=== PATIENT | female | born 1965 | race Caucasian/White ===

== ENCOUNTER 2021-02-03 16:37 | Outpatient (CLI) | payer OTHER | END 2021-02-03 16:38 | disposition home or self-care (01) | LOC: CSHLAB 16:37 | PROVIDERS: ATTEND Obstetrics & Gynecology | DX: Z01.812 Encounter for preprocedural laboratory examination (principal); Z20.822 Contact with and (suspected) exposure to COVID-19 | CPT/HCPCS: 84703; 85027; 86850; 86900; 86901; U0003; U0005 ==

== ENCOUNTER 2021-02-08 08:31 | Observation (INO) | payer OTHER ==
[2021-02-03 17:37] LABS: Mean Corpuscular HGB CONC 31.6 g/dL (32.0-36.0); Mean Corpuscular Hemoglobin 29.4 pg (27.0-33.0); Mean Corpuscular Volume 93.1 fl (81.6-98.3); Mean Platelet Volume 9.5 fl (7.4-10.4); Platelet Count 240 10x3/uL (150-450); RBC Distribution Width 12.7 % (11.5-14.5); Red Blood Cell (RBC) Count 4.08 10x6/uL (3.90-5.03); White Blood Cell (WBC) Count 4.3 10x3/uL (3.5-10.5)
[2021-02-03 17:44] LABS: BHCG - Serum Negative (NEGATIVE); Pregs Control Background? CLEAR/WHITE (CLR/WHITE); Pregs Control Bar Appear? YES (CONTROL BAR)
[2021-02-04 15:34] LABS: SARS-CoV-2 PCR by NAA Not Detected (NotDetected)
[2021-02-06 10:59] VITALS: BMI 21.6
[2021-02-08] MEDS ORDERED: Gabapentin 300 MG CAP ONE (08:50)
[2021-02-08] MEDS ORDERED: CeleCOXIB 100 MG CAP ONE (08:50)
[2021-02-08] MEDS ORDERED: Lidocaine 1% MPF 2 ML VIAL ONE (08:51)
[2021-02-08] MEDS ORDERED: Famotidine/PF 20 mg/2ml Vial ONE (08:51)
[2021-02-08] MEDS ORDERED: EPINEPHrine 1 MG/ML AMP ONE (10:46)
[2021-02-08] MEDS ORDERED: Lidocaine 1% w/Epinephrine 1:200K 30 ML VIAL ONE (10:46)
[2021-02-08] MEDS ORDERED: Bupivacaine PF 0.5% 30 ML VIAL ONE (10:46)
[2021-02-08] MEDS ORDERED: PROPOFOL 20 ML ONE (10:51)
[2021-02-08] MEDS ORDERED: Fentanyl 250 MCG/5 ML VIAL ONE (10:51)
[2021-02-08] MEDS ORDERED: Ketorolac Tromethamine 30 MG/ML VIAL ONE (10:52)
[2021-02-08] MEDS ORDERED: Glycopyrrolate 0.2 MG/ML 5 ML SYRINGE ONE (10:52)
[2021-02-08] MEDS ORDERED: Midazolam HCl 2 mg/2 ml Vial ONE (10:52)
[2021-02-08] MEDS ORDERED: Rocuronium Bromide 10 MG/ML (10ML VIAL) ONE (10:52)
[2021-02-08] MEDS ORDERED: Lidocaine 1% PF 5 ML VIAL ONE (10:52)
[2021-02-08] MEDS ORDERED: Ondansetron PF 4 MG/2 ML Vial ONE (10:52)
[2021-02-08] MEDS ORDERED: Dexamethasone 20 MG/5 ML VIAL ONE (10:52)
[2021-02-08] MEDS ORDERED: diphenhydrAMINE 25 MG CAP PO PRN (13:10)
[2021-02-08] MEDS ORDERED: Morphine 4 MG/ML VIAL SLOW IVP PRN ×2 (13:10→14:51)
[2021-02-08] MEDS ORDERED: Promethazine HCl 25 MG/ML VIAL IM PRN (13:10)
[2021-02-08] MEDS ORDERED: HYDROcodone/Acetaminophen 5/325 mg Tablet PO PRN (13:10)
[2021-02-08] MEDS ORDERED: Bisacodyl 10 MG SUPP PR PRN (13:10)
[2021-02-08] MEDS ORDERED: Simethicone Chewable 80 MG TAB PO PRN (13:10)
[2021-02-08] MEDS ORDERED: Ondansetron PF 4 MG/2 ML Vial IVP PRN (13:10)
[2021-02-08] MEDS ORDERED: traMADol HCl 50 MG TAB PO PRN (13:10)
[2021-02-08] MEDS ORDERED: Zolpidem Tartrate 5 MG TAB PO PRN (13:10)
[2021-02-08] MEDS: Sodium Chloride 0.9% 1,000 ML IV SCH ×2 (17:19→23:46)
[2021-02-08] MEDS: Ibuprofen 800 MG TAB PO SCH ×3 (17:20→19:37)
[2021-02-08] MEDS: Ketorolac Tromethamine 30 MG/ML VIAL IVP SCH ×2 (18:42→23:39)
[2021-02-08] MEDS: HYDROcodone/Acetaminophen 5/325 mg Tablet PO PRN (20:17)
[2021-02-08] MEDS ORDERED: Anastrozole 1 MG TAB PO SCH (21:00)
[2021-02-08] MEDS: Docusate 100 MG CAP PO SCH (21:41)
[2021-02-09] MEDS: HYDROcodone/Acetaminophen 5/325 mg Tablet PO PRN ×2 (04:27→09:50)
[2021-02-09 04:45] LABS: Hemoglobin 10.9 g/dL (12.0-15.5); Mean Corpuscular HGB CONC 31.4 g/dL (32.0-36.0); Mean Corpuscular Hemoglobin 28.9 pg (27.0-33.0); Mean Platelet Volume 9.6 fl (7.4-10.4); Platelet Count 200 10x3/uL (150-450); RBC Distribution Width 12.8 % (11.5-14.5); Red Blood Cell (RBC) Count 3.77 10x6/uL (3.90-5.03); White Blood Cell (WBC) Count 7.2 10x3/uL (3.5-10.5)
[2021-02-09] MEDS: Ketorolac Tromethamine 30 MG/ML VIAL IVP SCH ×2 (06:16→10:02)
[2021-02-09 07:39] VITALS: TEMP 98.2
[2021-02-09] MEDS: Sodium Chloride 0.9% 1,000 ML IV SCH (09:04)
[2021-02-09] MEDS: Docusate 100 MG CAP PO SCH (09:38)
[2021-02-09 11:56] VITALS: BP 121/69
== END 2021-02-09 12:19 | disposition home or self-care (01) ==
LOC: CSHSDC 08:31 → CSHPED 14:35 → INTOOBSV 14:35
PROVIDERS: ADMIT Obstetrics & Gynecology; ATTEND Obstetrics & Gynecology
PROC: 0UT94ZZ Resection of Uterus, Percutaneous Endoscopic Approach (ICD-10-PCS; principal; 2021-02-08)
PROC: 0UT24ZZ Resection of Bilateral Ovaries, Percutaneous Endoscopic Approach (ICD-10-PCS; 2021-02-08)
PROC: 0UT74ZZ Resection of Bilateral Fallopian Tubes, Percutaneous Endoscopic Approach (ICD-10-PCS; 2021-02-08)
PROC: 0USG4ZZ Reposition Vagina, Percutaneous Endoscopic Approach (ICD-10-PCS; 2021-02-08)
PROC: 0JQC0ZZ Repair Pelvic Region Subcutaneous Tissue and Fascia, Open Approach (ICD-10-PCS; 2021-02-08)
PROC: 0JQC0ZZ Repair Pelvic Region Subcutaneous Tissue and Fascia, Open Approach (ICD-10-PCS; 2021-02-08)
PROC: 0WQNXZZ Repair Female Perineum, External Approach (ICD-10-PCS; 2021-02-08)
DX: N81.2 Incomplete uterovaginal prolapse (principal); I48.91 Unspecified atrial fibrillation; Z79.899 Other long term (current) drug therapy; Z85.3 Personal history of malignant neoplasm of breast
CPT/HCPCS: 36415; 84703; 85027; 86850; 86900; 86901; 88307; 93005; 93010; C1776; J0171; J0690; J1100; J1885; J2250; J2270; J2405; J2704; J3010; J7050; S0020; S0028; U0003; U0005